=== PATIENT | male | born 1950 | race Caucasian/White ===

== ENCOUNTER 2016-11-16 00:55 | Day surgery (SDC) | payer OTHER ==
[~2016-11-16] VITALS: Ht 182.9 cm; Wt 111.8 kg
[2016-11-16] VITALS (14 sets, daily range): BP systolic 132–157; BP diastolic 61–85; PULSE 74–87; RESP 10–21; O2SAT 97–99
[~2016-11-16 00:55] MED LIST: FENO160T14 PO; HYDR25TA4 PO; INSU100V7 SUBQ; LISI40TA PO; METF-778 PO; METH18TA12 PO; TEST1PAT7 TD; VENL150C98 PO
[2016-11-16 06:40] LABS: BASOPHILS % (AUTO) 0.2 % (0-3); EOSINOPHILS % (AUTO) 2.4 % (0-5); Mean Corpuscular Hemoglobin 29.1 pg (27.0-35.0); Mean Corpuscular Volume 85.6 fL (81-100); NEUTROPHILS % (AUTO) 39.7 % (40-74); Platelet Count 308 bil/L (150-400)
[2016-11-16] MEDS ORDERED: 0.9% Sodium Chloride 1,000 ML IV ONE (06:51)
[2016-11-16 06:58] LABS: INR 0.89 ratio
[2016-11-16] MEDS ORDERED: VENL225T3 PO (07:17)
[2016-11-16] MEDS ORDERED: ATOR20TA PO (07:17)
[2016-11-16] MEDS ORDERED: Heparin 1,000 Units/500 mL NS Premix IV ONE ×2 (07:38→09:19)
[2016-11-16] MEDS ORDERED: 0.9% Sodium Chloride 50 ML ONE (07:42)
[2016-11-16] MEDS ORDERED: Heparin 10,000 Unit/1,000 mL NS Premix IV ONE ×2 (08:03→09:19)
[2016-11-16] MEDS ORDERED: fentaNYL-PF 50 mCg/mL 2 mL Inj ONE (08:05)
[2016-11-16] MEDS ORDERED: Sodium Chloride LOK Flush 10 mL Syringe IVFLUSH SCH (08:30)
[2016-11-16] MEDS ORDERED: Heparin 1,000 Unit/mL 10 mL Inj ONE (08:36)
[2016-11-16] MEDS ORDERED: hydrALAZINE 20 mg/mL Inj ONE (08:58)
--- NOTE | 2016-11-16 09:59 | NUR ---
Post cardiac cath: Patient returns from [facility]. He is alert and denies pain. 6F cath intact to R groin. Cath Tech here to discontinue sheath.
[2016-11-16] MEDS ORDERED: 0.9% Sodium Chloride 1,000 ML IV PRN (10:10)
[2016-11-16] MEDS ORDERED: 0.9% Sodium Chloride 250 ML IV PRN (10:10)
[2016-11-16] MEDS ORDERED: Atropine 1 mg/10 mL (Code) Syringe IVPUSH PRN (10:10)
[2016-11-16] MEDS ORDERED: Ondansetron 2 mg/mL 2 mL Inj IVPUSH PRN (10:10)
[2016-11-16] MEDS ORDERED: HYDROcodone-APAP 5-325 mg Tablet PO PRN (10:10)
--- NOTE | 2016-11-16 14:15 | NUR ---
Patient off bedrest, ambulatory to bathroom and back to room. Right groin remains intact.Pt encouraged to ambulate. it is my understanding from office staff that Dr Woodson will see this ptient before discharge and then make arrangements for his return for PCI.Pt informed.
--- NOTE | 2016-11-16 14:15 | CS94 ---
[address] [address] DIAGNOSTIC CARDIAC CATHETERIZATION PATIENT: DIOGO YARBROUGH : 1950 MR#: [id number] ADMIT: 11/16/2016 JOB ID: [id number] SERVICE DATE: 11/16/2016 PROCEDURE: 1. Retrograde left heart catheterization. 2. Selective left and right coronary angiography. 3. Left ventricular hemodynamics. 4. Right heart catheterization and hemodynamics. INDICATION: The patient is a 66-year-old gentleman who presented with symptoms of exertional shortness of breath and a new diagnosed cardiac murmur. He subsequently underwent stress testing and echocardiography which revealed moderate aortic stenosis. Stress test revealed reversible perfusion defect in the inferolateral wall. To assess the severity of aortic stenosis, hemodynamic study was scheduled including the right heart catheterization and coronary angiography to assess for extent and severity of coronary artery disease. CONSENT: The patient was explained the risks, benefits, and alternatives of the procedure. Informed signed consent was obtained and placed in the chart. PROCEDURE: The patient was brought to the cath laboratory and placed on the cath table. Both groins were prepped and draped in the usual sterile manner. Lidocaine 1% was infiltrated in the right groin area. Using a modified standard Seldinger technique, a 6-Bruneian arterial sheath, long 55 cm, was placed in the right femoral artery without any difficulty. In a similar manner, a venous sheath was placed in the right femoral vein again with no difficulty. A Houston-Michael catheter was advanced into the right femoral vein and the balloon tip was inflated. The catheter was advanced to the right ventricle and subsequently advanced to the right pulmonary artery. The balloon tip was inflated. Pulmonary capillary wedge pressures along with oxygen saturations were obtained. The pressures as well as oxygen saturation was obtained in the pulmonary artery, the right ventricle and right atrium in a sequential manner. Cardiac output by thermodilution method was obtained. Oxygen saturations were obtained to obtain cardiac output by HECTOR method. After the completion of the right heart catheter, left FR-4 catheter was advanced over the guidewire and placed in the left main coronary artery. Multiple views of the left main coronary artery were obtained in multiple projections. FR-4 catheter was engaged in the right coronary artery and multiple views of the right coronary artery were obtained in multiple projections. Subsequently, a pigtail catheter was advanced over the guidewire. The 0.038 straight wire was used to advance into the aorta. The pigtail catheter was advanced and placed in the left ventricle. Subsequently, left ventricular hemodynamics was obtained. Given significantly elevated left ventricular end-diastolic pressure, the LV cineangiography was not performed. A pullback maneuver was performed to assess for any left ventricle to aortic gradient. The gradient was noted and recorded. The simultaneous pressures of the aorta as well as LV was obtained to measure peak to peak gradient as well. After the completion of the angiogram, the catheters were withdrawn. The sheath was manually removed and local pressure was applied. The drugs used fentanyl and Versed and 2000 units of heparin was used during the procedure. ACT was measured after the procedure. COMPLICATIONS: None. TOTAL FLUOROSCOPY TIME: 16.1 minutes. TOTAL CONTRAST USED: 95 cc. FINDINGS: HEMODYNAMICS: The pulmonary capillary wedge pressure was 14 mmHg. The PA pressure was 48/20 with a mean of 35 mmHg. The RV pressure was 59/9 with a mean of 17 mmHg. RA pressure was 16/13 with a mean of 11 mmHg. Oxygen saturations: The pulmonary capillary wedge oxygen saturation was 100%. The aorta was 98%. RV 78%. PA 76% and RA of 84%. Cardiac output by thermodilution method was 10.4 with a cardiac index of 4.59. Cardiac output by HECTOR method 11.04 with a cardiac index of 4.74. The calculated aortic valve area was 1.75 cm2 consistent with mild aortic stenosis. Left-sided hemodynamics: The left ventricular pressure was 188/11 with a left ventricular end-diastolic pressure of 37. CORONARY ANGIOGRAPHY: The left main coronary artery is moderate in size and bifurcates into left anterior descending artery and left circumflex coronary artery. Mild diffuse calcification is noted. Mild narrowing of 10%-20% noted in the mid body of the left main coronary artery. The left anterior descending artery is mildly diffusely calcified and wraps around the LV apex. The diagonal branch is noted arising from the LAD. The mid-LAD demonstrates a short segment of diffusely calcified stenosis of approximately 70%-80%. The diagonal branches arising from the LAD demonstrated no significant disease. Left circumflex coronary artery has a mid circumflex discrete lesion of 40%-50%. The OM branches arising from the left circumflex have no significant disease. The right coronary artery is moderately diffusely calcified with segments of ectasia and stenosis. The distal RCA has a tight 70%-80% stenosis before the crux. It bifurcates into a PDA and a posterolateral branch. These branches are diffusely diseased. IMPRESSION: 1. Three-vessel coronary artery disease. Significant disease noted in the mid LAD and distal right coronary artery. 2. Mild aortic stenosis. 3. Normal cardiac output. 4. Severely elevated left ventricular end-diastolic pressures. 5. No evidence of intracardiac shunt. 6. Mean gradient across the aortic valve is 47 mmHg and the calculated valve area of 1.75 cm2 consistent with mild aortic stenosis.
--- NOTE | 2016-11-16 15:14 | NUR ---
Dr Woodson has consulted with patient.New prescriptions given. Discharge instructions reviewed with patient.Right groin remains stable. Pt discharged ambulatory.
== END 2016-11-16 23:59 | disposition home or self-care (01) ==
LOC: SPI 00:55
PROVIDERS: ATTEND Internal Medicine Cardiovascular Disease
DX: I35.0 Nonrheumatic aortic (valve) stenosis (principal); I25.10 Atherosclerotic heart disease of native coronary artery without angina pectoris; E11.9 Type 2 diabetes mellitus without complications; Z79.4 Long term (current) use of insulin; Z79.84 Long term (current) use of oral hypoglycemic drugs; F32.9 Major depressive disorder, single episode, unspecified; I10 Essential (primary) hypertension; I73.9 Peripheral vascular disease, unspecified
CPT/HCPCS: 36415; 80048; 85025; 85610; 93005; 93460; 99152; 99153; C1766; C1769; J0360; J1644; J2250; J3010; J7030; Q9967

== ENCOUNTER 2016-12-06 00:29 | Day surgery (SDC) | payer OTHER ==
[~2016-12-06] VITALS: Ht 182.9 cm; Wt 109.0 kg
[2016-12-06] VITALS (11 sets, daily range): BP systolic 118–145; BP diastolic 51–74; PULSE 68–83; RESP 12–19; O2SAT 98
[~2016-12-06 00:29] MED LIST changes: +ASPI325T32 PO; +BUPR100T7 PO; +FLUO10TA PO; +INSLIS SUBQ; +LIP40 PO; +LISI10TA PO; -LISI40TA PO; -METH18TA12 PO; +METH20TA35 PO; +MONT10TA23 PO; +OLAN2.5T3 PO; -VENL150C98 PO; +[UNRECOGNIZED DRUG - CODE] PO
[2016-12-06] MEDS ORDERED: 0.9% Sodium Chloride 1,000 ML IV ONE (07:39)
[2016-12-06 11:38] LABS: BASOPHILS % (AUTO) 0.2 % (0-3); EOSINOPHILS % (AUTO) 2.5 % (0-5); MONOCYTES % (AUTO) 7.9 % (4-12); Mean Corpuscular Hemoglobin 29.7 pg (27.0-35.0); Mean Corpuscular Volume 85.1 fL (81-100); NEUTROPHILS % (AUTO) 50.3 % (40-74); Platelet Count 290 bil/L (150-400)
[2016-12-06] MEDS ORDERED: ALPR0.5T8 PO (11:56)
[2016-12-06] MEDS ORDERED: fentaNYL-PF 50 mCg/mL 2 mL Inj ONE (13:02)
[2016-12-06] MEDS ORDERED: Heparin 10,000 Unit/1,000 mL NS Premix IV ONE (13:27)
[2016-12-06] MEDS ORDERED: Atropine 1 mg/10 mL (Code) Syringe ONE (13:38)
--- NOTE | 2016-12-06 14:13 | DI95 ---
[address] [address] INTERVENTIONAL CARDIAC CATHETERIZATION PATIENT: DIOGO YARBROUGH : 1950 MR#: [id number] ADMIT: 12/06/2016 JOB ID: [id number] DATE OF SERVICE: 12/06/2016 PROCEDURE: Selective left and right coronary angiography, percutaneous intervention on the left anterior descending and the right coronary artery. INDICATION: Known coronary artery disease. Exertional chest discomfort. PROCEDURAL DETAILS: The reader and the coders are referred to the procedure log for complete details. Briefly, a Cosme left catheter was used to do a diagnostic left angiogram. He had a recent angiogram with Dr. Tucker. However the images on the retrieval system were not adequate. I had to do additional angiography. Next, the intervention was done the AL1. The same AL1 was then used to do a right coronary intervention. ANGIOGRAPHIC FINDINGS: 1. Left main. Mild plaquing of 10% to 20%. No critical disease. 2. LAD is diffusely diseased. It has mild plaquing in its entirety. Past the take-off of the first diagonal branch, there is a very eccentric 70% to 80% lesion. The diagonal also has about 40% disease in its proximal part. 3. Circumflex is nondominant. It has mild luminal irregularities. 4. Right coronary artery in its proximal part has a 30% lesion and distally it has an eccentric 70% lesion. INTERVENTIONAL REPORT: Using a Run-through wire and an AL1 guide, we balloon dilated the mid LAD and then stented it with a 3 x 28 mm Xience drug-coated stent. Next, the same guide was then used to cannulate the right coronary artery. The right coronary artery was pre-dilated with a 2.0 balloon and then stented with a 3.25 x 12 mm Xience drug-coated stent. Angiographic results were excellent in both vessels. The patient is advised to stay on dual antiplatelet therapy for at least six months post procedure. Further followup with Dr. Tucker.
--- NOTE | 2016-12-06 16:16 | NUR ---
PT TRANSERED TO [facility]. REPORT GIVEN
[2016-12-06] MEDS ORDERED: Sodium Chloride LOK Flush 10 mL Syringe IVFLUSH PRN (16:40)
[2016-12-06] MEDS ORDERED: Clopidogrel 300 mg Tablet (LOADING DOSE) PO ONE (16:40)
[2016-12-06] MEDS ORDERED: 0.9% Sodium Chloride 250 ML BOLUS IV PRN (16:40)
[2016-12-06] MEDS ORDERED: Ondansetron 2 mg/mL 2 mL Inj IVPUSH PRN (16:40)
[2016-12-06] MEDS ORDERED: 0.9% Sodium Chloride 400 ML (4 HRS) IV ONE (16:40)
[2016-12-06] MEDS ORDERED: Atropine 1 mg/10 mL (Code) Syringe IVPUSH PRN (16:40)
--- NOTE | 2016-12-06 16:54 | NUR ---
Pt admit to [facility] Pt transported from [facility] to [facility] room 2027 in hospital bed. Pt report received from Renetta ATWOOD. Pt off of bed rest 1600. IV fluids started at 100mls/hr for 4 hours. Pt alert, oriented, very pleasant, voices needs appropriately. [address] to RCA, perclose to right groin. Site pink, soft non tender.
[2016-12-06] MEDS ORDERED: Insulin GLARgine 100 Unit/mL Syringe SUBQ SCH (22:40)
[2016-12-06] MEDS ORDERED: Insulin LISPRO High-Dose Scale SUBQ PRN (22:40)
[2016-12-07 03:50] VITALS: BP 127/72; PULSE 74; RESP 16; O2SAT 97
--- NOTE | 2016-12-07 05:33 | NUR ---
Rest/ A/0, denies pain or discomfort. Groin site c/d/i, soft, no hematoma appreciated. Pt expressed desire to rest, feeling exhausted. Rested with eyes closed for extended period, easily wakes with gentle stimuli. VSS. Tele: SR in 70's.
[2016-12-07 09:02] VITALS: BP 158/76; PULSE 76; RESP 16; O2SAT 99
[2016-12-07 10:18] VITALS: PULSE 76
[2016-12-07] MEDS ORDERED: CLOP75TA28 PO (11:54)
== END 2016-12-07 13:22 | disposition home or self-care (01) ==
LOC: SPI 00:29 → PCC 16:22 → SPI 12-07 13:22
PROVIDERS: ATTEND Internal Medicine Cardiovascular Disease
DX: I25.10 Atherosclerotic heart disease of native coronary artery without angina pectoris (principal); I35.0 Nonrheumatic aortic (valve) stenosis; Z79.84 Long term (current) use of oral hypoglycemic drugs; Z79.82 Long term (current) use of aspirin; Z79.4 Long term (current) use of insulin; E11.9 Type 2 diabetes mellitus without complications; I10 Essential (primary) hypertension; I73.9 Peripheral vascular disease, unspecified
CPT/HCPCS: 36415; 80048; 85025; 93005; 93454; 99152; 99153; C1725; C1760; C1769; C1874; C1887; C9600; J1200; J1644; J1815; J2060; J2250; J3010; J7030; Q9967